=== PATIENT | male | born 1955 | race American Indian/Alaskan Native ===

== ENCOUNTER 2021-12-10 13:47 | Emergency (ER) | payer SELFPAY ==
[~2021-12-10] VITALS: Ht 182.9 cm; Wt 65.0 kg
[2021-12-10] MEDS ORDERED: ONDANSETRON HCL 4 MG/2 ML VIAL IV PRN (14:00)
[2021-12-10] MEDS ORDERED: MECLIZINE HCL 25 MG TAB PO ONE (14:00)
[2021-12-10] MEDS ORDERED: SODIUM CHLORIDE 0.9% 1,000 ML IV ONE (14:00)
[2021-12-10 14:54] LABS: Basophils # (auto) 0.1 10 ^3/uL (0-0.2); Basophils % (auto) 0.6 % (0.0-2.0); Eosinophils # (auto) 0 10 ^3/uL (0-0.8); Eosinophils % (auto) 0.4 % (0.0-7.0); Hematocrit 49.5 % (41.0-53.0); Hemoglobin 16.2 g/dL (13.5-17.5); Lymphocytes # (auto) 0.8 10 ^3/uL (0.4-5.4); Lymphocytes % (auto) 7.6 % (10.0-50.0); Mean Corpuscular Hemoglobin 29.2 pg (28.0-32.0); Mean Corpuscular Hgb Conc. 32.6 g/dL (32.0-36.0); Mean Corpuscular Volume 89.6 fL (80.0-100.0); Monocytes # (auto) 0.4 10 ^3/uL (0-1.3); Neutrophils # (auto) 9.7 10 ^3/uL (1.6-8.6); Neutrophils % (auto) 87.4 % (37.0-80.0); Red Blood Cells 5.53 10^6/uL (4.5-5.90); Red Cell Distribution Width 13.2 % (11.8-14.3); White Blood Cell 11.1 10^3/uL (4.4-10.8)
[2021-12-10] MEDS ORDERED: ONDANSETRON ODT 4 MG TAB PO ONE (15:15)
[2021-12-10 15:19] LABS: Albumin 4.1 g/dL (3.4-5.0); BUN/Creatinine Ratio 22.5; Calcium 8.4 mg/dL (8.5-10.1); Potassium 3.7 mmol/L (3.5-5.1)
[2021-12-10 15:21] LABS: Bilirubin, Total 0.7 mg/dL (0.2-1.0); Total Protein 7.5 g/dL (6.4-8.2)
[2021-12-10] MEDS ORDERED: ACETAMINOPHEN 500 MG TAB PO ONE (18:00)
[2021-12-10] MEDS ORDERED: MECL25TA18 PO (18:12)
[2021-12-10] MEDS ORDERED: ONDA-144 PO (18:12)
[2021-12-10 19:19] VITALS: BP 129/81
== END 2021-12-10 19:22 | disposition home or self-care (01) ==
LOC: ER 13:47
DX: R42 Dizziness and giddiness (principal)
CPT/HCPCS: 36415; 80053; 84484; 85025; 93005; 99284; J8597; Q0162